=== PATIENT | female | born 1970 | race Caucasian/White ===

== ENCOUNTER 2019-10-23 08:54 | Day surgery (SDC) | payer MEDICAID, OTHER ==
[2019-10-21 16:24] LABS: ALANINE AMINOTRANSFERASE 26 U/L (12-78); ALBUMIN 3.4 g/dL (3.4-5.0); ANION GAP 5 mmol/L (5-15); CALCIUM 8.7 mg/dL (8.5-10.1); CHLORIDE 108 mmol/L (98-107)
[2019-10-21 16:26] LABS: ALKALINE PHOSPHATASE 85 U/L (45-117); BILIRUBIN,TOTAL 0.6 mg/dL (0.2-1.0); TOTAL PROTEIN 7.8 g/dL (6.4-8.2)
[~2019-10-23] VITALS: Ht 157.5 cm; Wt 96.3 kg
[~2019-10-23 08:54] MED LIST: BUPIVACAINE/PF-EPI 0.5% 1:200K ONE; LIDOCAINE/PF 1%-EPI 1:200K, 30 ML ONE; LISI40TA PO; NAPR-685 PO; OMEP40CA42 PO
[2019-10-23] MEDS ORDERED: LACTATED RINGERS 1,000 ML IV SCH (09:24)
[2019-10-23] MEDS ORDERED: CHLORHEXIDINE 15 ML UDC MM ONE (09:30)
[2019-10-23] MEDS ORDERED: LIDOCAINE-MPF 1%, 2ML INFIL ONE (09:30)
[2019-10-23 09:46] LABS: HCG UR SG 1.019 (1.003-1.030)
[2019-10-23 09:55] VITALS: BP 156/80
[2019-10-23] MEDS ORDERED: MIDAZOLAM 1 MG/ML, 2ML ONE (10:41)
[2019-10-23] MEDS ORDERED: FENTANYL PF 250 MCG/5ML ONE (10:41)
[2019-10-23] MEDS ORDERED: hydrALAzine 20 MG/ML, 1ML IV PRN (12:00)
[2019-10-23] MEDS ORDERED: HYDROmorphone 2 MG/ML, 1ML IVPush PRN (12:00)
[2019-10-23] MEDS ORDERED: ALBUTEROL SULFATE 2.5 MG/3 ML NPPB PRN (12:00)
[2019-10-23] MEDS ORDERED: KETOROLAC 30 MG/1 ML IV PRN (12:00)
[2019-10-23] MEDS ORDERED: DIAZEPAM 5 MG/ML, 2ML IVPush PRN (12:00)
[2019-10-23] MEDS ORDERED: MEPERIDINE/PF 25MG/0.5ML IVPush PRN (12:00)
[2019-10-23] MEDS ORDERED: LABETALOL 5MG/ML, 20ML IV PRN (12:00)
[2019-10-23] MEDS ORDERED: OXYcodone 5 MG/5 ML ORAL.SOL UDC PO PRN (12:00)
[2019-10-23] MEDS ORDERED: PROMETHAZINE 25 MG/ML, 1ML IV PRN (12:00)
[2019-10-23] MEDS ORDERED: FENTANYL PF 100 MCG/2ML IV PRN (12:00)
[2019-10-23] MEDS ORDERED: ACETAMINOPHEN 325 MG TABLET PO PRN (12:00)
[2019-10-23] MEDS ORDERED: DEXAMETHASONE 4 MG/ML, 1ML ONE (13:21)
[2019-10-23] MEDS ORDERED: CEFAZOLIN 1,000 MG ONE (13:21)
[2019-10-23] MEDS ORDERED: SUCCINYLCHOLINE 20 MG/ML, 10ML ONE (13:21)
[2019-10-23] MEDS ORDERED: GLYCOPYRROLATE 0.2MG/1ML, 5ML ONE (13:21)
[2019-10-23] MEDS ORDERED: ROCURONIUM 10MG/ML,5ML ONE (13:21)
[2019-10-23] MEDS ORDERED: ONDANSETRON 2MG/ML, 2ML ONE (13:21)
[2019-10-23] MEDS ORDERED: NEOSTIGMINE 1 MG/ML, 10ML ONE (13:21)
[2019-10-23] MEDS ORDERED: PROPOFOL 10 MG/ML, 20ML ONE (13:21)
[2019-10-23] MEDS ORDERED: FENTANYL PF 100 MCG/2ML ONE ×2 (13:26→13:33)
[2019-10-23] MEDS ORDERED: hydrALAzine 20 MG/ML, 1ML ONE (13:33)
[2019-10-24] MEDS ORDERED: NAPROXEN 500 MG TABLET PO SCH (09:00)
[2019-10-24] MEDS ORDERED: OMEPRAZOLE 20 MG CAPSULE.DR PO SCH (09:00)
[2019-10-24] MEDS ORDERED: LISINOPRIL 40 MG TABLET PO SCH (09:00)
== END 2019-10-23 17:05 | disposition home or self-care (01) ==
LOC: OUT 08:54 → EDSTATUS 15:15 → OUT 17:05
PROVIDERS: ATTEND Orthopaedic Surgery
DX: S46.011A Strain of muscle(s) and tendon(s) of the rotator cuff of right shoulder, initial encounter (principal); Z11.59 Encounter for screening for other viral diseases; S43.431A Superior glenoid labrum lesion of right shoulder, initial encounter; S46.111A Strain of muscle, fascia and tendon of long head of biceps, right arm, initial encounter; M75.41 Impingement syndrome of right shoulder; M19.011 Primary osteoarthritis, right shoulder; M65.811 Other synovitis and tenosynovitis, right shoulder; I10 Essential (primary) hypertension; Z79.899 Other long term (current) drug therapy; Z88.0 Allergy status to penicillin; Z88.5 Allergy status to narcotic agent; Z91.040 Latex allergy status; Z82.61 Family history of arthritis; Z82.3 Family history of stroke; X50.0XXA Overexertion from strenuous movement or load, initial encounter; Y93.89 Activity, other specified; Y92.89 Other specified places as the place of occurrence of the external cause; Y99.8 Other external cause status
CPT/HCPCS: 29823; 29824; 29826; 29827; 29828; 36415; 64415; 80053; 81025; C1713; J0360; J0690; J1100; J2250; J2405; J2704; J3010; J3490; J7120; U0001; J2710; J0330

== ENCOUNTER 2019-12-16 15:12 | Inpatient (IN) | payer OTHER ==
[~2019-12-16] VITALS: Ht 157.5 cm; Wt 99.0 kg
[~2019-12-16 15:12] MED LIST changes: -BUPIVACAINE/PF-EPI 0.5% 1:200K ONE; -LIDOCAINE/PF 1%-EPI 1:200K, 30 ML ONE
--- NOTE | 2019-12-16 15:32 | NUR ---
Provider Jhon CARDENAS informed of sepsis pre alert and covid r/o
[2019-12-16] MEDS ORDERED: SODIUM CHLORIDE 0.9% 1,000 ML IV ONE (15:49)
[2019-12-16] MEDS ORDERED: ONDANSETRON 2MG/ML, 2ML IVPush ONE (16:00)
[2019-12-16] MEDS ORDERED: HYDROmorphone 1 MG/ML, 1ML INJ IVPush PRN (16:00)
[2019-12-16] MEDS ORDERED: FAMOTIDINE 20 MG TABLET PO ONE (16:00)
[2019-12-16] MEDS ORDERED: ACETAMINOPHEN 500 MG TABLET ONE (16:08)
[2019-12-16] MEDS ORDERED: HYDROmorphone 1 MG/ML, 1ML INJ ONE (16:08)
[2019-12-16] MEDS ORDERED: ONDANSETRON 2MG/ML, 2ML ONE (16:08)
[2019-12-16] MEDS ORDERED: FAMOTIDINE 20 MG/2 ML ONE (16:08)
[2019-12-16] MEDS ORDERED: FAMOTIDINE 20 MG TABLET ONE (16:09)
--- NOTE | 2019-12-16 16:20 | NUR ---
PER DR PAIGE & PA EMA: PT DOES NOT MEET SEPTIC SHOCK PROTOCOL SO NO FURTHER ORDERS R/T SEPSIS FLOW SHEET.
[2019-12-16] MEDS ORDERED: ACETAMINOPHEN 325 MG TABLET PO ONE (16:30)
[2019-12-16 16:31] LABS: ALANINE AMINOTRANSFERASE 50 U/L (12-78); ALBUMIN 3.2 g/dL (3.4-5.0); ANION GAP 7 mmol/L (5-15); CALCIUM 8.3 mg/dL (8.5-10.1); CHLORIDE 108 mmol/L (98-107); CREATININE 0.64 mg/dL (0.55-1.02)
[2019-12-16 16:32] LABS: BASOPHILS % (AUTO) 0 % (0-1); EOSINOPHILS # (AUTO) 0.01 x10^3/uL (0-0.4); EOSINOPHILS % (AUTO) 0 % (1-7); LYMPHOCYTES # (AUTO) 2.11 x10^3/uL (1-3.4); LYMPHOCYTES % (AUTO) 23 % (22-44); MD NO; MEAN CORPUSCULAR HEMOGLOBIN 29.3 pg (27.0-34.8); MEAN CORPUSCULAR HGB CONC 31.9 g/dL (32.4-35.8); MEAN CORPUSCULAR VOLUME 91.8 fL (80-100); MEAN PLATELET VOLUME 9.2 fL (7.4-10.4); MONOCYTES # (AUTO) 0.67 x10^3/uL (0.2-0.8); MONOCYTES % (AUTO) 7 % (2-9); NEUTROPHILS # (AUTO) 6.41 x10^3/uL (1.8-6.8); NEUTROPHILS % (AUTO) 70 % (42-75); PLATELET COUNT 486 x10^3/uL (130-400); RED BLOOD COUNT 3.09 x10^6/uL (3.82-5.3); RED CELL DISTRIBUTION WIDTH 16.8 % (9.6-15.2)
[2019-12-16 16:36] LABS: ALKALINE PHOSPHATASE 101 U/L (45-117); BILIRUBIN,TOTAL 0.4 mg/dL (0.2-1.0); TOTAL PROTEIN 7.6 g/dL (6.4-8.2)
[2019-12-16] MEDS ORDERED: MULT-658 PO (16:36)
--- NOTE | 2019-12-16 16:57 | NUR ---
PT TO CT
[2019-12-16] MEDS ORDERED: OMNIPAQUE 350 MG/ML, 100ML BOTTLE ONE (17:16)
[2019-12-16] MEDS ORDERED: CEFTRIAXONE PMX 1GM/50ML 50 ML ONE (17:30)
[2019-12-16] MEDS ORDERED: CEFTRIAXONE PMX 1GM/50ML 50 ML IV ONE (17:30)
--- NOTE | 2019-12-16 17:35 | NUR ---
PT RETURNED FROM CT
[2019-12-16 17:54] LABS: MICROSCOPIC NOT IND
[2019-12-16] MEDS ORDERED: SODIUM CHLORIDE 0.9%, 500ML IVBOLUS ONE (18:00)
--- NOTE | 2019-12-16 18:27 | NUR ---
Pt to be [facility]. Report called to Lottie.
--- NOTE | 2019-12-16 18:56 | NUR ---
REPORT GIVEN TO
[2019-12-16] MEDS ORDERED: BISACODYL 10 MG SUPP PR PRN (20:30)
[2019-12-16] MEDS ORDERED: POLYETHYLENE GLYCOL 17 GM PACKET PO PRN (20:30)
[2019-12-16 21:31] VITALS: BP 135/73
[2019-12-16] MEDS: SODIUM CHLORIDE 0.9% 1,000 ML IV SCH (22:23)
[2019-12-16] MEDS: LISINOPRIL 40 MG TABLET PO SCH (22:23)
[2019-12-16] MEDS: ACETAMINOPHEN 325 MG TABLET PO PRN (22:33)
[2019-12-17] VITALS (8 sets, daily range): BP systolic 101–139; BP diastolic 67–80
[2019-12-17 07:46] LABS: BASOPHILS # (AUTO) 0.07 x10^3/uL (0-0.1); BASOPHILS % (AUTO) 1 % (0-1); EOSINOPHILS # (AUTO) 0.01 x10^3/uL (0-0.4); EOSINOPHILS % (AUTO) 0 % (1-7); LYMPHOCYTES # (AUTO) 2.89 x10^3/uL (1-3.4); LYMPHOCYTES % (AUTO) 39 % (22-44); MD NO; MEAN CORPUSCULAR HEMOGLOBIN 29.3 pg (27.0-34.8); MEAN CORPUSCULAR HGB CONC 31.5 g/dL (32.4-35.8); MEAN CORPUSCULAR VOLUME 92.7 fL (80-100); MEAN PLATELET VOLUME 8.6 fL (7.4-10.4); MONOCYTES # (AUTO) 0.54 x10^3/uL (0.2-0.8); MONOCYTES % (AUTO) 7 % (2-9); NEUTROPHILS # (AUTO) 3.86 x10^3/uL (1.8-6.8); NEUTROPHILS % (AUTO) 52 % (42-75); PLATELET COUNT 399 x10^3/uL (130-400); RED BLOOD COUNT 2.78 x10^6/uL (3.82-5.3); RED CELL DISTRIBUTION WIDTH 16.7 % (9.6-15.2)
[2019-12-17 07:55] LABS: ANION GAP 6 mmol/L (5-15); CALCIUM 7.6 mg/dL (8.5-10.1); CHLORIDE 109 mmol/L (98-107)
[2019-12-17 07:59] LABS: CREATININE 0.64 mg/dL (0.55-1.02)
[2019-12-17] MEDS: SODIUM CHLORIDE 0.9% 1,000 ML IV SCH (08:07)
[2019-12-17] MEDS: OMEPRAZOLE 20 MG CAPSULE.DR PO SCH (08:10)
[2019-12-17] MEDS: MULTIVITAMIN 1 TABLET PO SCH (08:10)
[2019-12-17] MEDS: SENNA/DOCUSATE TABLET PO SCH (08:11)
[2019-12-17 09:18] LABS: % IRON SATURATION 4 % (20-55); IRON LEVEL 14 mcg/dL (50-170); TOTAL IRON BINDING CAPACITY 387 mcg/dL (250-450)
[2019-12-17] MEDS: CEFTRIAXONE PMX 1GM/50ML 50 ML IV SCH (09:45)
[2019-12-17] MEDS: PROGESTERONE 100 MG CAPSULE PO SCH (09:45)
[2019-12-17] MEDS: ONDANSETRON ODT 4 MG PO PRN (09:53)
[2019-12-17] MEDS: ACETAMINOPHEN 325 MG TABLET PO PRN (14:16)
[2019-12-17] MEDS: LISINOPRIL 40 MG TABLET PO SCH (20:56)
[2019-12-17] MEDS: FAMOTIDINE 20 MG/2 ML IVPush SCH (20:56)
[2019-12-18] MEDS: SODIUM CHLORIDE 0.9% 1,000 ML IV SCH ×2 (00:05→10:46)
[2019-12-18 00:15] VITALS: BP 134/83
[2019-12-18 06:30] LABS: BASOPHILS % (AUTO) 0 % (0-1); EOSINOPHILS # (AUTO) 0.02 x10^3/uL (0-0.4); EOSINOPHILS % (AUTO) 0 % (1-7); LYMPHOCYTES # (AUTO) 2.88 x10^3/uL (1-3.4); LYMPHOCYTES % (AUTO) 38 % (22-44); MD NO; MEAN CORPUSCULAR HEMOGLOBIN 29.9 pg (27.0-34.8); MEAN CORPUSCULAR HGB CONC 32.6 g/dL (32.4-35.8); MEAN CORPUSCULAR VOLUME 91.7 fL (80-100); MEAN PLATELET VOLUME 8.7 fL (7.4-10.4); MONOCYTES # (AUTO) 0.39 x10^3/uL (0.2-0.8); MONOCYTES % (AUTO) 5 % (2-9); NEUTROPHILS # (AUTO) 4.37 x10^3/uL (1.8-6.8); NEUTROPHILS % (AUTO) 57 % (42-75); PLATELET COUNT 325 x10^3/uL (130-400); RED BLOOD COUNT 2.85 x10^6/uL (3.82-5.3); RED CELL DISTRIBUTION WIDTH 17.1 % (9.6-15.2)
[2019-12-18 06:37] LABS: ANION GAP 7 mmol/L (5-15); CALCIUM 7.2 mg/dL (8.5-10.1); CHLORIDE 110 mmol/L (98-107)
[2019-12-18 06:39] LABS: CREATININE 0.46 mg/dL (0.55-1.02)
[2019-12-18 06:51] VITALS: BP 141/83
[2019-12-18] MEDS: PROGESTERONE 100 MG CAPSULE PO SCH (07:32)
[2019-12-18] MEDS: ONDANSETRON ODT 4 MG PO PRN ×2 (07:32→16:38)
[2019-12-18] MEDS: OMEPRAZOLE 20 MG CAPSULE.DR PO SCH (07:33)
[2019-12-18] MEDS: ALUMINUM/MAG/SIMETHICONE 30 ML UDC PO PRN (07:33)
[2019-12-18] MEDS: MULTIVITAMIN 1 TABLET PO SCH (07:33)
[2019-12-18] MEDS: SENNA/DOCUSATE TABLET PO SCH ×2 (07:33→07:44)
[2019-12-18] MEDS: FAMOTIDINE 20 MG/2 ML IVPush SCH ×2 (07:33→20:30)
[2019-12-18] MEDS: IRON SUCROSE COMPLEX 100MG/5ML IV SCH (10:45)
[2019-12-18] MEDS: CEFTRIAXONE PMX 1GM/50ML 50 ML IV SCH (10:46)
[2019-12-18 13:11] VITALS: BP 136/85
[2019-12-18 19:48] VITALS: BP 152/91
[2019-12-18] MEDS: LISINOPRIL 40 MG TABLET PO SCH (20:30)
[2019-12-19 00:39] VITALS: BP 138/83
[2019-12-19] MEDS: SODIUM CHLORIDE 0.9% 1,000 ML IV SCH ×2 (01:05→13:50)
[2019-12-19 06:58] LABS: BASOPHILS # (AUTO) 0.03 x10^3/uL (0-0.1); BASOPHILS % (AUTO) 0 % (0-1); EOSINOPHILS # (AUTO) 0.07 x10^3/uL (0-0.4); EOSINOPHILS % (AUTO) 1 % (1-7); LYMPHOCYTES # (AUTO) 2.61 x10^3/uL (1-3.4); LYMPHOCYTES % (AUTO) 24 % (22-44); MD NO; MEAN CORPUSCULAR HEMOGLOBIN 29.3 pg (27.0-34.8); MEAN CORPUSCULAR HGB CONC 32.3 g/dL (32.4-35.8); MEAN CORPUSCULAR VOLUME 90.8 fL (80-100); MEAN PLATELET VOLUME 8.7 fL (7.4-10.4); MONOCYTES # (AUTO) 0.65 x10^3/uL (0.2-0.8); MONOCYTES % (AUTO) 6 % (2-9); NEUTROPHILS # (AUTO) 7.62 x10^3/uL (1.8-6.8); NEUTROPHILS % (AUTO) 69 % (42-75); PLATELET COUNT 285 x10^3/uL (130-400); RED BLOOD COUNT 2.74 x10^6/uL (3.82-5.3); RED CELL DISTRIBUTION WIDTH 16.6 % (9.6-15.2)
[2019-12-19 07:09] LABS: ANION GAP 9 mmol/L (5-15); CALCIUM 7.1 mg/dL (8.5-10.1); CHLORIDE 108 mmol/L (98-107); CREATININE 0.41 mg/dL (0.55-1.02)
[2019-12-19 07:16] VITALS: BP 129/77
[2019-12-19] MEDS: IRON SUCROSE COMPLEX 100MG/5ML IV SCH (08:00)
[2019-12-19] MEDS: FAMOTIDINE 20 MG/2 ML IVPush SCH ×2 (08:00→21:20)
[2019-12-19] MEDS: PROGESTERONE 100 MG CAPSULE PO SCH (08:01)
[2019-12-19] MEDS: ALUMINUM/MAG/SIMETHICONE 30 ML UDC PO PRN (08:01)
[2019-12-19] MEDS: OMEPRAZOLE 20 MG CAPSULE.DR PO SCH (08:01)
[2019-12-19] MEDS: MULTIVITAMIN 1 TABLET PO SCH (08:01)
[2019-12-19] MEDS: ONDANSETRON ODT 4 MG PO PRN ×3 (08:01→16:46)
[2019-12-19] MEDS: SENNA/DOCUSATE TABLET PO SCH (08:02)
[2019-12-19] MEDS: CEFTRIAXONE PMX 1GM/50ML 50 ML IV SCH (10:10)
[2019-12-19 13:01] VITALS: BP 121/72
[2019-12-19 18:03] VITALS: BP 127/81
[2019-12-19] MEDS: LISINOPRIL 40 MG TABLET PO SCH (21:20)
[2019-12-20] VITALS (12 sets, daily range): BP systolic 113–138; BP diastolic 67–83
[2019-12-20 05:32] LABS: ALANINE AMINOTRANSFERASE 31 U/L (12-78); ALBUMIN 2.3 g/dL (3.4-5.0); ANION GAP 5 mmol/L (5-15); CALCIUM 7.8 mg/dL (8.5-10.1); CHLORIDE 107 mmol/L (98-107); CREATININE 0.44 mg/dL (0.55-1.02); INTERNATIONAL NORMALIZED RATIO 0.94 (0.93-1.1)
[2019-12-20 05:34] LABS: ALKALINE PHOSPHATASE 99 U/L (45-117); BILIRUBIN,TOTAL 0.2 mg/dL (0.2-1.0); TOTAL PROTEIN 6.1 g/dL (6.4-8.2)
[2019-12-20 05:40] LABS: D-DIMER (DIC) 6.05 ug/mlFEU (0.00-0.52); PROTIME 9.8 Seconds (9.6-11.5)
[2019-12-20 06:31] LABS: MD YES; MEAN CORPUSCULAR HEMOGLOBIN 28.8 pg (27.0-34.8); MEAN CORPUSCULAR HGB CONC 31.3 g/dL (32.4-35.8); MEAN CORPUSCULAR VOLUME 92.1 fL (80-100); MEAN PLATELET VOLUME 8.7 fL (7.4-10.4); PLATELET COUNT 284 x10^3/uL (130-400); RED BLOOD COUNT 2.59 x10^6/uL (3.82-5.3); RED CELL DISTRIBUTION WIDTH 16.8 % (9.6-15.2)
[2019-12-20 06:37] LABS: BAND#(MANUAL) 0.31 x10^3/uL; BANDS%(MANUAL) 3 % (0-7); BASOS% (MANUAL) 1 % (0-1); LYMPH#(MANUAL) 2.04 x10^3/uL (1-3.4); LYMPHS% (MANUAL) 20 % (22-44); METAMYELOCYTES% (MANUAL) 1 % (0-1); MONOS#(MANUAL) 0.41 x10^3/uL (0.3-2.7); MONOS% (MANUAL) 4 % (2-9); NRBC % (MANUAL) 5 % (0-1); SEG#(MANUAL) 7.24 x10^3/uL (1.8-6.8); SEGS% (MANUAL) 71 % (42-75)
[2019-12-20 06:38] LABS: <PLATELET ESTIMATE> ADEQUATE; LARGE PLATELETS 1+
[2019-12-20 06:41] LABS: ANISOCYTOSIS 1+; HYPOCHROMIA 1+; POLYCHROMASIA 1+
[2019-12-20 06:42] LABS: BASOPHILLIC STIPPLING 1+
[2019-12-20 06:44] LABS: HOWELL-JOLLY BODIES 1+; OVALOCYTES 1+
[2019-12-20 06:45] LABS: MICROCYTOSIS 1+
[2019-12-20] MEDS ORDERED: ACETAMINOPHEN 325 MG TABLET PO ONE (08:00)
[2019-12-20] MEDS: IRON SUCROSE COMPLEX 100MG/5ML IV SCH (08:24)
[2019-12-20] MEDS: MULTIVITAMIN 1 TABLET PO SCH (08:24)
[2019-12-20] MEDS: FAMOTIDINE 20 MG/2 ML IVPush SCH (08:24)
[2019-12-20] MEDS: OMEPRAZOLE 20 MG CAPSULE.DR PO SCH (08:25)
[2019-12-20] MEDS: PROGESTERONE 100 MG CAPSULE PO SCH (08:25)
[2019-12-20] MEDS: SENNA/DOCUSATE TABLET PO SCH (08:25)
[2019-12-20] MEDS ORDERED: NORGESTIMATE-ETHINYL ESTRADIOL TABLET PO SCH (12:00)
[2019-12-20] MEDS: ACETAMINOPHEN 325 MG TABLET PO PRN (12:39)
[2019-12-20] MEDS: CEFTRIAXONE PMX 1GM/50ML 50 ML IV SCH (14:50)
[2019-12-20] MEDS: NORGESTREL PO SCH (14:50)
[2019-12-20] MEDS: ETHINYL ESTRADIOL PO SCH (14:50)
[2019-12-20] MEDS: LISINOPRIL 40 MG TABLET PO SCH (21:07)
[2019-12-20] MEDS: ONDANSETRON ODT 4 MG PO PRN (21:07)
[2019-12-21 00:41] VITALS: BP 139/74
[2019-12-21] MEDS: ONDANSETRON ODT 4 MG PO PRN ×3 (05:18→19:17)
[2019-12-21 07:11] VITALS: BP 126/81
[2019-12-21] MEDS: IRON SUCROSE COMPLEX 100MG/5ML IV SCH (08:18)
[2019-12-21] MEDS: OMEPRAZOLE 20 MG CAPSULE.DR PO SCH (08:37)
[2019-12-21] MEDS: SENNA/DOCUSATE TABLET PO SCH (08:37)
[2019-12-21] MEDS: MULTIVITAMIN 1 TABLET PO SCH (08:37)
[2019-12-21] MEDS: CEFTRIAXONE PMX 1GM/50ML 50 ML IV SCH (10:26)
[2019-12-21] MEDS: NORGESTREL PO SCH (12:32)
[2019-12-21] MEDS: ETHINYL ESTRADIOL PO SCH (12:32)
[2019-12-21] MEDS: ACETAMINOPHEN 325 MG TABLET PO PRN (12:39)
[2019-12-21 13:47] VITALS: BP 129/82
[2019-12-21] MEDS: ASCORBATE SODIUM 3,000 MG in SODIUM CHLORIDE 0.9% 250 ML IVPB SCH ×2 (15:55→21:47)
[2019-12-21 19:46] VITALS: BP 140/83
[2019-12-21] MEDS: LISINOPRIL 40 MG TABLET PO SCH (21:47)
[2019-12-22 00:19] VITALS: BP 146/77
[2019-12-22] MEDS: ASCORBATE SODIUM 3,000 MG in SODIUM CHLORIDE 0.9% 250 ML IVPB SCH ×4 (03:34→21:11)
[2019-12-22 07:28] VITALS: BP 165/92
[2019-12-22] MEDS: MULTIVITAMIN 1 TABLET PO SCH (09:30)
[2019-12-22] MEDS: SENNA/DOCUSATE TABLET PO SCH (09:30)
[2019-12-22] MEDS: OMEPRAZOLE 20 MG CAPSULE.DR PO SCH (09:30)
[2019-12-22] MEDS: ZINC SULFATE 220 MG CAPSULE PO SCH (09:30)
[2019-12-22] MEDS: NORGESTREL PO SCH (11:59)
[2019-12-22] MEDS: ETHINYL ESTRADIOL PO SCH (11:59)
[2019-12-22 12:00] VITALS: BP 154/86
[2019-12-22 21:02] VITALS: BP 150/93
[2019-12-22] MEDS: LISINOPRIL 40 MG TABLET PO SCH (21:04)
[2019-12-23 03:06] VITALS: BP 134/85
[2019-12-23] MEDS: ASCORBATE SODIUM 3,000 MG in SODIUM CHLORIDE 0.9% 250 ML IVPB SCH ×2 (03:20→10:00)
[2019-12-23 04:37] LABS: ANION GAP 7 mmol/L (5-15); CALCIUM 7.5 mg/dL (8.5-10.1); CHLORIDE 105 mmol/L (98-107); CREATININE 0.35 mg/dL (0.55-1.02)
[2019-12-23 04:59] LABS: MEAN CORPUSCULAR HEMOGLOBIN 29.9 pg (27.0-34.8); MEAN CORPUSCULAR HGB CONC 32.4 g/dL (32.4-35.8); MEAN CORPUSCULAR VOLUME 92.5 fL (80-100); MEAN PLATELET VOLUME 8.8 fL (7.4-10.4); PLATELET COUNT 300 x10^3/uL (130-400); RED BLOOD COUNT 2.69 x10^6/uL (3.82-5.3)
[2019-12-23 05:25] LABS: MD YES
[2019-12-23 05:28] LABS: ANISOCYTOSIS 1+; EOS#(MANUAL) 0.17 x10^3/uL (0.0-0.4); EOS% (MANUAL) 1 % (1-7); LYMPH#(MANUAL) 3.57 x10^3/uL (1-3.4); LYMPHS% (MANUAL) 21 % (22-44); MONOS#(MANUAL) 0.68 x10^3/uL (0.3-2.7); MONOS% (MANUAL) 4 % (2-9); NRBC % (MANUAL) 5 % (0-1); SEG#(MANUAL) 12.58 x10^3/uL (1.8-6.8); SEGS% (MANUAL) 74 % (42-75)
[2019-12-23 05:29] LABS: HYPOCHROMIA 1+; MICROCYTOSIS 1+; POLYCHROMASIA 1+
[2019-12-23 05:30] LABS: <PLATELET ESTIMATE> ADEQUATE; HOWELL-JOLLY BODIES 1+; OVALOCYTES 1+
[2019-12-23 05:31] LABS: <PLT MORPHOLOGY> NORMAL PLT MORPH
[2019-12-23 07:05] VITALS: BP 131/87
[2019-12-23] MEDS: OMEPRAZOLE 20 MG CAPSULE.DR PO SCH (08:52)
[2019-12-23] MEDS: SENNA/DOCUSATE TABLET PO SCH (08:52)
[2019-12-23] MEDS: ZINC SULFATE 220 MG CAPSULE PO SCH (08:52)
[2019-12-23] MEDS: MULTIVITAMIN 1 TABLET PO SCH (08:52)
[2019-12-23] MEDS ORDERED: NORGESTIMATE-ETHINYL ESTRADIOL TABLET PO SCH (09:00)
[2019-12-23] MEDS: ALUMINUM/MAG/SIMETHICONE 30 ML UDC PO PRN (11:06)
[2019-12-23] MEDS ORDERED: NORGESTREL PO SCH (12:00)
[2019-12-23] MEDS ORDERED: ETHINYL ESTRADIOL PO SCH (12:00)
[2019-12-23 12:27] VITALS: BP 158/82
[2019-12-23] MEDS ORDERED: ZINC220C7 PO (14:05)
[2019-12-23] MEDS ORDERED: [UNRECOGNIZED DRUG - OTHER] PO (14:05)
[2019-12-23] MEDS ORDERED: FERR325T5 PO (14:05)
[2019-12-25] MEDS ORDERED: ETHINYL ESTRADIOL HOMEMEDPO SCH (12:00)
[2019-12-25] MEDS ORDERED: NORGESTREL HOMEMEDPO SCH (12:00)
== END 2019-12-23 15:26 | disposition home or self-care (01) | DRG 871 ==
LOC: ED 17:36 → EDIP 17:37 → ED 17:58 → 4WST 19:45 → 4EST 21:17 → 3N 12-19 17:49
PROVIDERS: ADMIT Hospitalist; ATTEND Internal Medicine
PROC: 30233P1 Transfusion of Nonautologous Frozen Red Cells into Peripheral Vein, Percutaneous Approach (ICD-10-PCS; principal; 2019-12-17)
DX: A41.89 Other specified sepsis (principal); U07.1 COVID-19; J96.01 Acute respiratory failure with hypoxia; D62 Acute posthemorrhagic anemia; I82.619 Acute embolism and thrombosis of superficial veins of unspecified upper extremity; D25.9 Leiomyoma of uterus, unspecified; D50.9 Iron deficiency anemia, unspecified; E78.5 Hyperlipidemia, unspecified; I10 Essential (primary) hypertension; K21.9 Gastro-esophageal reflux disease without esophagitis; N92.0 Excessive and frequent menstruation with regular cycle; Z53.20 Procedure and treatment not carried out because of patient's decision for unspecified reasons; Z83.3 Family history of diabetes mellitus; Z90.411 Acquired partial absence of pancreas; Z90.710 Acquired absence of both cervix and uterus; Z90.81 Acquired absence of spleen; Z88.0 Allergy status to penicillin; Z90.49 Acquired absence of other specified parts of digestive tract; Z98.51 Tubal ligation status; Z91.040 Latex allergy status
CPT/HCPCS: 36415; 84145; J3490; 71045; 74177; 76830; 80048; 80053; 81003; 83540; 83550; 83605; 83615; 83690; 83735; 84703; 85014; 85018; 85025; 85049; 85379; 85384; 85610; 85730; 86304; 86850; 86900; 86923; 87040; 87635; 93005; G0378; J0696; J1170; J1756; J2405; Q0162; Q9967; J7030; J7040; J7050; P9016

== ENCOUNTER → 2020-05-12 | Outpatient (CLI) | payer MEDICAID ==
[~2020-05-12] MED LIST changes: +AMLO-211 PO; +AMOX1TAB12 PO; +FERR324T5 PO; +FERR325T5 PO; +LISI5TAB7 PO; +MEDR10TA3 PO; +MULT-658 PO; +ZINC220C7 PO; +[UNRECOGNIZED DRUG - OTHER] PO
[2020-05-12 09:34] LABS: BASOPHILS % (AUTO) 1 % (0-1); EOSINOPHILS % (AUTO) 3 % (1-7); LYMPHOCYTES % (AUTO) 36 % (22-44); MEAN CORPUSCULAR HEMOGLOBIN 27.5 pg (27.0-34.8); MEAN CORPUSCULAR HGB CONC 31.8 g/dL (32.4-35.8); MEAN PLATELET VOLUME 8.2 fL (7.4-10.4); MONOCYTES % (AUTO) 6 % (2-9); NEUTROPHILS % (AUTO) 54 % (42-75); PLATELET COUNT 577 x10^3/uL (130-400); RED BLOOD COUNT 3.39 x10^6/uL (3.82-5.3); RED CELL DISTRIBUTION WIDTH 24.2 % (9.6-15.2)
[2020-05-12 09:46] LABS: ALANINE AMINOTRANSFERASE 31 U/L (12-78); ALBUMIN 3.5 g/dL (3.4-5.0); ANION GAP 4 mmol/L (5-15); CALCIUM 8.8 mg/dL (8.5-10.1); CHLORIDE 112 mmol/L (98-107); CREATININE 0.59 mg/dL (0.55-1.02)
[2020-05-12 09:48] LABS: ALKALINE PHOSPHATASE 91 U/L (45-117); BILIRUBIN,TOTAL 0.3 mg/dL (0.2-1.0); TOTAL PROTEIN 8.1 g/dL (6.4-8.2)
[2020-05-12 09:52] LABS: MICROSCOPIC INDICATED
[2020-05-12 10:26] LABS: MD MORPH REVIEW ONLY
[2020-05-12 10:27] LABS: <PLATELET ESTIMATE> INCREASED; <PLT MORPHOLOGY> NORMAL PLT MORPH
[2020-05-12 10:28] LABS: ANISOCYTOSIS 2+; MICROCYTOSIS 1+
[2020-05-12 10:30] LABS: ACANTHOCYTES 1+; HYPOCHROMIA 1+; OVALOCYTES 1+
[2020-05-12 10:31] LABS: GIANT PLATELETS 1+
== END | disposition home or self-care (01) ==
LOC: STAR 07:43
PROVIDERS: ATTEND Obstetrics & Gynecology Female Pelvic Medicine and Reconstructive Surgery
DX: Z01.812 Encounter for preprocedural laboratory examination (principal); R10.2 Pelvic and perineal pain; R58 Hemorrhage, not elsewhere classified; D25.0 Submucous leiomyoma of uterus; N39.3 Stress incontinence (female) (male); Z20.828 Contact with and (suspected) exposure to other viral communicable diseases
CPT/HCPCS: 80053; 81001; 85025; 87086; 87635

== ENCOUNTER 2020-05-17 06:16 | Day surgery (SDC) | payer MEDICAID ==
[~2020-05-17] VITALS: Ht 157.5 cm; Wt 91.6 kg
[2020-05-17] MEDS ORDERED: EPINEPHRINE 1 MG/ML, 1ML ONE (07:04)
[2020-05-17] MEDS ORDERED: BUPIVACAINE/PF 0.5% ONE (07:04)
[2020-05-17 07:07] VITALS: BP 115/77
[2020-05-17] MEDS ORDERED: BUPIVACAINE/PF 0.25% ONE ×2 (07:10→08:51)
[2020-05-17 07:18] LABS: HCG UR SG 1.016 (1.003-1.030); MICROSCOPIC AUTO
[2020-05-17] MEDS ORDERED: CHLORHEXIDINE 15 ML UDC MM ONE (07:30)
[2020-05-17] MEDS ORDERED: LACTATED RINGERS 1,000 ML IV SCH (07:30)
[2020-05-17] MEDS ORDERED: FENTANYL PF 250 MCG/5ML ONE (08:14)
[2020-05-17] MEDS ORDERED: MIDAZOLAM 1 MG/ML, 2ML ONE (08:14)
[2020-05-17] MEDS ORDERED: MEPERIDINE/PF 25MG/0.5ML IVPush PRN (08:30)
[2020-05-17] MEDS ORDERED: hydrALAzine 20 MG/ML, 1ML IV PRN (08:30)
[2020-05-17] MEDS ORDERED: LABETALOL 5MG/ML, 20ML IV PRN (08:30)
[2020-05-17] MEDS ORDERED: HYDROmorphone 1 MG/ML, 1ML INJ IVPush PRN (08:30)
[2020-05-17] MEDS ORDERED: OXYcodone 5 MG/5 ML ORAL.SOL UDC PO PRN (08:30)
[2020-05-17] MEDS ORDERED: FENTANYL PF 100 MCG/2ML IV PRN (08:30)
[2020-05-17] MEDS ORDERED: HYDROcodone/APAP 7.5-325MG/15ML UDC PO PRN (08:30)
[2020-05-17] MEDS ORDERED: DIPHENHYDRAMINE 50 MG/ML, 1ML IVPush PRN (08:30)
[2020-05-17] MEDS ORDERED: HALOPERIDOL 5 MG/ML IV PRN (08:30)
[2020-05-17] MEDS ORDERED: PROMETHAZINE 25 MG/ML, 1ML IVPush PRN (08:30)
[2020-05-17] MEDS ORDERED: KETOROLAC 30 MG/1 ML ONE (09:43)
[2020-05-17] MEDS ORDERED: BUPIVACAINE/PF-EPI 0.25% 1:200K INFIL ONE ×2 (10:01→10:02)
[2020-05-17] MEDS ORDERED: NEOMY/POLYMYXIN B GU IRR. 1 ML IRRIG ONE (10:28)
[2020-05-17] MEDS ORDERED: FUROSEMIDE 20 MG/2 ML ONE (10:41)
[2020-05-17] MEDS ORDERED: ROCURONIUM 10MG/ML,5ML ONE (10:55)
[2020-05-17] MEDS ORDERED: ONDANSETRON 2MG/ML, 2ML ONE (10:55)
[2020-05-17] MEDS ORDERED: GLYCOPYRROLATE 0.2MG/1ML, 5ML ONE (10:55)
[2020-05-17] MEDS ORDERED: NEOSTIGMINE 1 MG/ML, 10ML ONE (10:55)
[2020-05-17] MEDS ORDERED: CEFAZOLIN 1,000 MG ONE (10:55)
[2020-05-17] MEDS ORDERED: PROPOFOL 10 MG/ML, 20ML ONE (10:55)
[2020-05-17] MEDS ORDERED: SUCCINYLCHOLINE 20 MG/ML, 10ML ONE (10:55)
[2020-05-17] MEDS ORDERED: OXYcodone 5 MG/5 ML ORAL.SOL UDC ONE (11:54)
[2020-05-17] MEDS ORDERED: ACETAMINOPHEN 650 MG/20.3 ML UDC ONE (11:54)
[2020-05-17] MEDS ORDERED: ACETAMINOPHEN 650 MG/20.3 ML UDC PO PRN (12:00)
== END 2020-05-17 15:30 | disposition home or self-care (01) ==
LOC: OR 06:16 → OUT 15:30
PROVIDERS: ATTEND Obstetrics & Gynecology Female Pelvic Medicine and Reconstructive Surgery
DX: N92.1 Excessive and frequent menstruation with irregular cycle (principal); N94.6 Dysmenorrhea, unspecified; N94.10 Unspecified dyspareunia; N81.89 Other female genital prolapse; N39.46 Mixed incontinence; N80.0 Endometriosis of uterus; N88.8 Other specified noninflammatory disorders of cervix uteri; N83.02 Follicular cyst of left ovary; N83.01 Follicular cyst of right ovary; N81.11 Cystocele, midline; N81.5 Vaginal enterocele; N81.6 Rectocele; I10 Essential (primary) hypertension; K21.9 Gastro-esophageal reflux disease without esophagitis; D64.9 Anemia, unspecified; Z79.899 Other long term (current) drug therapy; Z88.0 Allergy status to penicillin; Z88.5 Allergy status to narcotic agent; Z91.041 Radiographic dye allergy status; Z91.040 Latex allergy status; Z90.49 Acquired absence of other specified parts of digestive tract; Z98.51 Tubal ligation status
CPT/HCPCS: 57265; 57282; 57288; 58554; 81001; 81025; 87086; 88307; C1771; J0171; J0330; J0690; J1885; J1940; J2250; J2405; J2704; J2710; J3010; J7120